=== PATIENT | female | born 1945 | race Caucasian/White ===

== ENCOUNTER 2016-09-30 10:04 | Outpatient (CLI) | payer MEDICARE, OTHER ==
[2016-09-30 12:58] LABS: ALT (SGPT) 16 U/L (0-55); AST (SGOT) 19 U/L (5-34); Alkaline Phosphatase 88 U/L (40-150); Anion Gap 13 mmol/L (10-20); BUN (Urea Nitrogen) 18 mg/dL (9.8-20.1); Bilirubin, Total 0.5 mg/dL (0.2-1.2); CK (CPK) 179 U/L (29-168); Calc. Creatinine Clearance 0 mL/min (70-130); Calcium 9.3 mg/dL (7.8-10.44); Carbon Dioxide 27 mmol/L (23-31); Chloride 104 mmol/L (98-107); Estimated GFR-MDRD 52; Globulin 2.7 g/dL (2.4-3.5); Protein, Total 6.9 g/dL (5.8-8.1)
[2016-09-30 14:24] LABS: White Blood Cell (WBC) Count 8.7 thou/uL (4.8-10.8)
[2016-09-30 14:25] LABS: %Basophils 0.7 % (0.0-1.0); %Eosinophils 7.9 % (0.0-10.0); %Lymphocytes 25.4 % (21.0-51.0); %Monocytes 6.4 % (0.0-10.0); Hematocrit 46.9 % (36.0-47.0); Mean Platelet Volume 7.6 fL (7.4-10.4); Red Blood Cell (RBC) Count 5.03 mill/uL (4.20-5.40)
[2016-09-30 14:26] LABS: #Basophils 0.1 thou/uL (0.0-0.2); #Eosinphils 0.7 thou/uL (0.0-0.7); #Lymphocytes 2.2 thou/uL (1.20-3.40); #Monocytes 0.6 thou/uL (0.11-0.59); #Neutrophils 5.2 thou/uL (1.40-6.50)
== END 2016-09-30 10:05 | disposition home or self-care (01) ==
LOC: NAVSJIPCSP 10:04
PROVIDERS: ATTEND Student in an Organized Health Care Education/Training Program
DX: E53.8 Deficiency of other specified B group vitamins (principal); E55.9 Vitamin D deficiency, unspecified; E53.1 Pyridoxine deficiency; E51.9 Thiamine deficiency, unspecified; R25.1 Tremor, unspecified
CPT/HCPCS: 36415; 80053; 82306; 82550; 82607; 84207; 84425; 85025

== ENCOUNTER 2016-10-16 13:34 | Outpatient (CLI) | payer MEDICARE, OTHER ==
[2016-10-16 13:55] LABS: Bilirubin Negative (Negative); Blood, Urine Negative (Negative); Glucose, Urine (Dipstick) Negative (Negative); Ketone, Urine Negative (Negative); Nitrite Negative (Negative); Protein, Urine (Dipstick) Negative (Neg-Trace); Urobilinogen 0.2 mg/dL (0.2-1.0)
[2016-10-16 15:25] LABS: Squamous Epithelial 0-3 HPF (0-3); WBC/HPF 0-3 HPF (0-3)
== END 2016-10-16 13:35 | disposition home or self-care (01) ==
LOC: NAVSJIPCSP 13:34 → NAV LAB 13:35
PROVIDERS: ATTEND Family Medicine
DX: N39.0 Urinary tract infection, site not specified (principal)
CPT/HCPCS: 81003; 81015; 87086

== ENCOUNTER 2017-01-20 14:42 | Outpatient (CLI) | payer MEDICARE, OTHER ==
[2017-01-20 15:33] LABS: Bilirubin Negative (Negative); Blood, Urine Trace (Negative); Clarity Clear (Clear); Glucose, Urine (Dipstick) 100 mg/dL (Negative); Leukocyte Small (Negative); Nitrite Positive (Negative); Protein, Urine (Dipstick) Negative (Neg-Trace); Urobilinogen 0.2 mg/dL (0.2-1.0); pH, Urine 5.5 (5.0-9.0)
[2017-01-20 15:48] LABS: Bacteria/HPF 4+ HPF (None Seen); RBC/HPF 0-3 HPF (0-3); Squamous Epithelial 0-3 HPF (0-3); WBC/HPF 21-50 HPF (0-3)
== END 2017-01-20 14:43 | disposition home or self-care (01) ==
LOC: NAV LAB 14:42
PROVIDERS: ATTEND Family Medicine
DX: N39.0 Urinary tract infection, site not specified (principal)
CPT/HCPCS: 81003; 81015; 87077; 87086; 87186

== ENCOUNTER 2017-02-11 09:04 | Outpatient (CLI) | payer MEDICARE, OTHER ==
[2017-02-11 12:49] LABS: #Basophils 0.1 thou/uL (0.0-0.2); #Eosinphils 0.3 thou/uL (0.0-0.7); #Lymphocytes 2.9 thou/uL (1.20-3.40); #Monocytes 0.6 thou/uL (0.11-0.59); #Neutrophils 5.6 thou/uL (1.40-6.50); %Basophils 0.9 % (0.0-1.0); %Eosinophils 3.1 % (0.0-10.0); %Lymphocytes 30.5 % (21.0-51.0); %Monocytes 6.2 % (0.0-10.0); %Neutrophils 59.4 % (42.0-75.0); Hemoglobin 13.5 g/dL (12.0-16.0); Mean Corpuscular HGB CONC 32.7 g/dL (32.0-36.0); Mean Corpuscular Hemoglobin 30.8 pg (27.0-31.0); Mean Corpuscular Volume 94.4 fl (81.0-99.0); Mean Platelet Volume 7.1 fL (7.4-10.4); Platelet Count 183 thou/uL (130-400); RBC Distribution Width 12.8 % (11.5-14.5); White Blood Cell (WBC) Count 9.4 thou/uL (4.8-10.8)
[2017-02-11 13:14] LABS: ALT (SGPT) 14 U/L (8-55); AST (SGOT) 19 U/L (5-34); Albumin 4.1 g/dL (3.4-4.8); Alkaline Phosphatase 81 U/L (40-150); Anion Gap 20 mmol/L (10-20); BUN (Urea Nitrogen) 24 mg/dL (9.8-20.1); Bilirubin, Direct 0.1 mg/dL (0.1-0.3); Bilirubin, Total 0.3 mg/dL (0.2-1.2); Calc. Creatinine Clearance 0 mL/min (70-130); Calcium 9.3 mg/dL (7.8-10.44); Carbon Dioxide 20 mmol/L (23-31); Cardiac Risk 3.9 (Less than 4.5); Chloride 105 mmol/L (98-107); Cholesterol 168 mg/dl (< 200 Desired); Estimated GFR-MDRD 52; HDL Cholesterol 43 mg/dL (>60 Neg Risk); LDL Cholesterol, Calculated 97 mg/dL; Potassium 4.6 mmol/L (3.5-5.1); Protein, Total 6.7 g/dL (6.0-8.3); Sodium 140 mmol/L (136-145); Triglycerides 141 mg/dL (Less than 150)
[2017-02-11 14:11] LABS: Hemoglobin A1c 7.3 % (4.0-6.0)
[2017-02-11 14:26] LABS: Glucose 50 mg/dL (83-110)
== END 2017-02-11 09:05 ==
LOC: NAVSJIPCSP 09:04
PROVIDERS: ATTEND Family Medicine
DX: E11.40 Type 2 diabetes mellitus with diabetic neuropathy, unspecified (principal); I10 Essential (primary) hypertension; R25.1 Tremor, unspecified; Z79.899 Other long term (current) drug therapy
CPT/HCPCS: 36415; 80048; 80061; 80076; 83036; 84443; 85025

== ENCOUNTER 2017-06-12 08:39 | Outpatient (CLI) | payer MEDICARE, OTHER ==
[2017-06-12 09:26] LABS: #Basophils 0.1 thou/uL (0.0-0.2); #Eosinphils 0.3 thou/uL (0.0-0.7); #Lymphocytes 2.5 thou/uL (1.20-3.40); #Monocytes 0.6 thou/uL (0.11-0.59); #Neutrophils 3.8 thou/uL (1.40-6.50); %Basophils 1.3 % (0.0-1.0); %Eosinophils 4.6 % (0.0-10.0); %Lymphocytes 34.1 % (21.0-51.0); %Monocytes 7.8 % (0.0-10.0); %Neutrophils 52.2 % (42.0-75.0); Hemoglobin 13.8 g/dL (12.0-16.0); Mean Corpuscular HGB CONC 31.9 g/dL (32.0-36.0); Mean Corpuscular Hemoglobin 30.1 pg (27.0-31.0); Mean Corpuscular Volume 94.3 fl (81.0-99.0); Mean Platelet Volume 8.5 fL (7.4-10.4); Platelet Count 182 thou/uL (130-400); RBC Distribution Width 12.2 % (11.5-14.5); Red Blood Cell (RBC) Count 4.57 mill/uL (4.20-5.40); White Blood Cell (WBC) Count 7.3 thou/uL (4.8-10.8)
[2017-06-12 09:44] LABS: Bilirubin Negative (Negative); Blood, Urine Trace (Negative); Clarity Slightly Cloudy (Clear); Glucose, Urine (Dipstick) Negative (Negative); Leukocyte Small (Negative); Nitrite Positive (Negative); Protein, Urine (Dipstick) Negative (Neg-Trace); Urobilinogen 0.2 mg/dL (0.2-1.0); pH, Urine 6.5 (5.0-9.0)
[2017-06-12 09:47] LABS: ALT (SGPT) 16 U/L (8-55); AST (SGOT) 17 U/L (5-34); Albumin 4.1 g/dL (3.4-4.8); Alkaline Phosphatase 93 U/L (40-150); Anion Gap 14 mmol/L (10-20); BUN (Urea Nitrogen) 29 mg/dL (9.8-20.1); Bilirubin, Direct 0.2 mg/dL (0.1-0.3); Bilirubin, Total 0.5 mg/dL (0.2-1.2); Calc. Creatinine Clearance 0 mL/min (70-130); Calcium 9.9 mg/dL (7.8-10.44); Carbon Dioxide 28 mmol/L (23-31); Cardiac Risk 4.5 (Less than 4.5); Chloride 101 mmol/L (98-107); Cholesterol 195 mg/dl (< 200 Desired); Estimated GFR-MDRD 43; Glucose 117 mg/dL (83-110); HDL Cholesterol 43 mg/dL (>60 Neg Risk); LDL Cholesterol, Calculated 116 mg/dL; Potassium 4.5 mmol/L (3.5-5.1); Protein, Total 7.4 g/dL (6.0-8.3); Sodium 138 mmol/L (136-145); Triglycerides 180 mg/dL (Less than 150)
[2017-06-12 09:48] LABS: Hemoglobin A1c 9.8 % (4.0-6.0)
[2017-06-12 09:53] LABS: Bacteria/HPF 3+ HPF (None Seen); RBC/HPF 0-3 HPF (0-3); Squamous Epithelial 0-3 HPF (0-3)
[2017-06-12 09:54] LABS: Other Microscopic Description NO
== END 2017-06-12 08:40 | disposition home or self-care (01) ==
LOC: NAV LAB 08:39
PROVIDERS: ATTEND Family Medicine
DX: E11.40 Type 2 diabetes mellitus with diabetic neuropathy, unspecified (principal); K21.9 Gastro-esophageal reflux disease without esophagitis; I10 Essential (primary) hypertension; R25.1 Tremor, unspecified; Z79.899 Other long term (current) drug therapy; E11.9 Type 2 diabetes mellitus without complications
CPT/HCPCS: 80048; 80061; 80076; 81001; 83036; 84443; 85025

== ENCOUNTER 2017-08-30 22:36 | Emergency (ER) | payer MEDICARE, OTHER ==
[2017-08-30] MEDS ORDERED: Ondansetron HCl/PF 4 MG/2 ML Vial ONE (22:58)
[2017-08-30] MEDS ORDERED: Fentanyl 100 MCG/2 ML VIAL ONE (22:58)
[2017-08-30] MEDS ORDERED: Famotidine/PF 20 mg/2ml Vial ONE (22:58)
[2017-08-30 23:32] LABS: PTT 34.4 SEC (22.9-36.1); Prothrombin Time 13.5 SEC (12.0-14.7)
[2017-08-30 23:35] LABS: #Basophils 0.1 thou/uL (0.0-0.2); #Eosinphils 0.3 thou/uL (0.0-0.7); #Monocytes 0.8 thou/uL (0.11-0.59); #Neutrophils 4.7 thou/uL (1.40-6.50); %Basophils 1.1 % (0.0-1.0); %Eosinophils 3.8 % (0.0-10.0); %Lymphocytes 25.4 % (21.0-51.0); %Monocytes 9.7 % (0.0-10.0); Hemoglobin 10.5 g/dL (12.0-16.0); Mean Corpuscular HGB CONC 32.4 g/dL (32.0-36.0); Mean Corpuscular Hemoglobin 30.3 pg (27.0-31.0); Mean Corpuscular Volume 93.5 fl (81.0-99.0); Mean Platelet Volume 8.4 fL (7.4-10.4); Platelet Count 185 thou/uL (130-400); Red Blood Cell (RBC) Count 3.47 mill/uL (4.20-5.40); White Blood Cell (WBC) Count 7.8 thou/uL (4.8-10.8)
[2017-08-30 23:37] LABS: Anion Gap 13 mmol/L (10-20); BUN (Urea Nitrogen) 11 mg/dL (9.8-20.1); Calc. Creatinine Clearance 0 mL/min (70-130); Calcium 8.8 mg/dL (7.8-10.44); Carbon Dioxide 25 mmol/L (23-31); Chloride 107 mmol/L (98-107); Estimated GFR-MDRD 66; Glucose 146 mg/dL (83-110); Potassium 3.3 mmol/L (3.5-5.1); Sodium 142 mmol/L (136-145)
[2017-08-30 23:39] LABS: ALT (SGPT) 24 U/L (8-55); AST (SGOT) 38 U/L (5-34); Albumin 3.4 g/dL (3.4-4.8); Alkaline Phosphatase 77 U/L (40-150); Bilirubin, Direct 0.2 mg/dL (0.1-0.3); Bilirubin, Total 0.3 mg/dL (0.2-1.2); Protein, Total 5.9 g/dL (6.0-8.3)
[2017-08-30 23:41] LABS: CKMB 3.8 ng/mL (0-6.6); Troponin I Less than 0.010 ng/mL (< 0.028)
[2017-08-31 00:15] LABS: Bilirubin Negative (Negative); Blood, Urine Trace (Negative); Clarity Clear (Clear); Glucose, Urine (Dipstick) 100 mg/dL (Negative); Leukocyte Small (Negative); Nitrite Negative (Negative); Protein, Urine (Dipstick) 30 mg/dL (Neg-Trace); Urobilinogen 0.2 mg/dL (0.2-1.0)
[2017-08-31 00:25] LABS: RBC/HPF 0-3 HPF (0-3); Squamous Epithelial 0-3 HPF (0-3)
[2017-08-31 00:26] LABS: Bacteria/HPF Rare-Few HPF (None Seen)
[2017-08-31] MEDS ORDERED: Fentanyl 100 MCG/2 ML VIAL ONE (00:41)
== END 2017-08-31 00:50 | disposition home or self-care (01) ==
LOC: NAV ERS 22:36
DX: K21.9 Gastro-esophageal reflux disease without esophagitis (principal); F17.210 Nicotine dependence, cigarettes, uncomplicated; F32.9 Major depressive disorder, single episode, unspecified; M54.9 Dorsalgia, unspecified; G89.29 Other chronic pain; I10 Essential (primary) hypertension; E11.9 Type 2 diabetes mellitus without complications; Z79.899 Other long term (current) drug therapy; Z79.84 Long term (current) use of oral hypoglycemic drugs
CPT/HCPCS: 80048; 80076; 81003; 81015; 82150; 82553; 83605; 83690; 84484; 85025; 85610; 85730; 96374; 96375; 96376; J2405; J3010; S0028

== ENCOUNTER 2018-10-08 14:02 | Outpatient (CLI) | payer MEDICARE, OTHER ==
[2018-10-08 14:06] LABS: Bilirubin Negative (Negative); Blood, Urine Small (Negative); Clarity Cloudy (Clear); Glucose, Urine (Dipstick) >=1000 mg/dL (Negative); Leukocyte Moderate (Negative); Nitrite Positive (Negative); Protein, Urine (Dipstick) Negative (Neg-Trace); Urobilinogen 0.2 mg/dL (0.2-1.0)
[2018-10-08 14:47] LABS: RBC/HPF 0-3 HPF (0-3); WBC/HPF 21-50 HPF (0-3)
[2018-10-08 14:48] LABS: Bacteria/HPF 3+ HPF (None Seen); Squamous Epithelial 0-3 HPF (0-3)
[2018-10-08 14:49] LABS: Urine Culture Reflex Yes Yes
== END 2018-10-08 14:03 | disposition home or self-care (01) ==
LOC: NAV LABSP 14:02
PROVIDERS: ATTEND Family Medicine
DX: N39.41 Urge incontinence (principal)
CPT/HCPCS: 81001; 87077; 87086

== ENCOUNTER 2019-01-12 10:01 | Outpatient (CLI) | payer MEDICARE, OTHER ==
--- NOTE | 2019-01-12 10:50 | RAD ---
Lumbar radiographs with bending lateral projections Images: 5 INDICATION: Low back pain with history of spondylolisthesis COMPARISON: Prior exam dated October 05, 2013 FINDINGS: Disc and facet joints: There is moderate disc degenerative disease at L4-5 and L5-S1. Fracture: None. Alignment: There is grade 1 anterolisthesis of L3 on L4 and L2 on L3 that is accentuated with flexion but does not appreciably reduce with extension. Prevertebral soft tissues: There are scattered vascular calcifications involving the abdominal pelvic vasculature. There are cholecystectomy clips within the right upper quadrant. IMPRESSION: Worsening abnormal translational motion seen at L3-4 and L2-3 with the accentuated grade 1 anterolisthesis of L3 on L4 and L2 on L3 with flexion. There is no appreciable reduction seen with extension. There is moderate spondylosis of the lumbar spine that is largely stable to the prior exam.
== END 2019-01-12 10:02 | disposition home or self-care (01) ==
LOC: NAV RAD 10:01
PROVIDERS: ATTEND Physical Medicine & Rehabilitation
DX: M43.16 Spondylolisthesis, lumbar region (principal)
CPT/HCPCS: 72120

== ENCOUNTER 2019-03-25 16:02 | Emergency (ER) | payer MEDICARE, OTHER ==
[2019-03-25] MEDS ORDERED: Lorazepam 0.5 MG TAB ONE (16:51)
[2019-03-25 17:12] LABS: #Basophils 0.1 thou/uL (0.0-0.2); #Eosinphils 0.4 thou/uL (0.0-0.7); #Lymphocytes 2.1 thou/uL (1.20-3.40); #Monocytes 0.4 thou/uL (0.11-0.59); #Neutrophils 4.2 thou/uL (1.40-6.50); %Basophils 1.1 % (0.0-1.0); %Eosinophils 5.6 % (0.0-10.0); %Lymphocytes 29.2 % (21.0-51.0); %Monocytes 5.9 % (0.0-10.0); %Neutrophils 58.3 % (42.0-75.0); Hemoglobin 13.4 g/dL (12.0-16.0); Mean Corpuscular HGB CONC 31.7 g/dL (32.0-36.0); Mean Corpuscular Hemoglobin 29.8 pg (27.0-31.0); Mean Platelet Volume 7.4 fL (7.4-10.4); Platelet Count 267 thou/uL (130-400); RBC Distribution Width 12.4 % (11.5-14.5); White Blood Cell (WBC) Count 7.2 thou/uL (4.8-10.8)
[2019-03-25 17:21] LABS: ALT (SGPT) 17 U/L (8-55); AST (SGOT) 15 U/L (5-34); Albumin 4.1 g/dL (3.4-4.8); Alkaline Phosphatase 100 U/L (40-150); Anion Gap 17 mmol/L (10-20); BUN (Urea Nitrogen) 22 mg/dL (9.8-20.1); Bilirubin, Total 0.4 mg/dL (0.2-1.2); CK (CPK) 87 U/L (29-168); Calc. Creatinine Clearance 0 mL/min (70-130); Calcium 9.6 mg/dL (7.8-10.44); Carbon Dioxide 25 mmol/L (23-31); Chloride 99 mmol/L (98-107); Estimated GFR-MDRD 35; Globulin 3.4 g/dL (2.4-3.5); Glucose 445 mg/dL (83-110); Potassium 5.3 mmol/L (3.5-5.1); Protein, Total 7.5 g/dL (6.0-8.3); Sodium 136 mmol/L (136-145)
--- NOTE | 2019-03-25 17:25 | RAD ---
PORTABLE CHEST 1 VIEW: Date: 03/25/19 Time: 1650 hours HISTORY: Chest pain. FINDINGS: Heart size normal. Lungs are expanded without lobar consolidation, pneumothoraces, or pleural effusio ns. IMPRESSION: No radiographic evidence of acute cardiopulmonary process. POS: [facility]
== END 2019-03-25 18:09 | disposition home or self-care (01) ==
LOC: NAV ERS 16:02
DX: R42 Dizziness and giddiness (principal); E86.0 Dehydration; T43.295A Adverse effect of other antidepressants, initial encounter; I10 Essential (primary) hypertension; E11.9 Type 2 diabetes mellitus without complications; E78.5 Hyperlipidemia, unspecified; G47.00 Insomnia, unspecified; M79.7 Fibromyalgia; M19.90 Unspecified osteoarthritis, unspecified site; F41.9 Anxiety disorder, unspecified; F32.9 Major depressive disorder, single episode, unspecified; F17.210 Nicotine dependence, cigarettes, uncomplicated; Z79.4 Long term (current) use of insulin; Z79.899 Other long term (current) drug therapy
CPT/HCPCS: 71045; 80053; 82550; 84484; 85025; 93005

== ENCOUNTER 2019-07-02 02:38 | Inpatient (IN) | payer MEDICARE, OTHER ==
[2019-07-02] MEDS ORDERED: Meclizine HCl 25 MG TAB ONE (03:30)
[2019-07-02] MEDS ORDERED: Sodium Chloride 0.9% 1,000 ML ONE (03:30)
[2019-07-02 03:35] LABS: Band 8 % (5-11); Hemoglobin 12.5 g/dL (12.0-16.0); Lymphocytes 3 % (21-51); MDiff Complete? YES; Mean Corpuscular HGB CONC 32.8 g/dL (32.0-36.0); Mean Corpuscular Hemoglobin 30.5 pg (27.0-31.0); Mean Corpuscular Volume 93.1 fL (78.0-98.0); Mean Platelet Volume 8.4 fL (7.4-10.4); Monocytes 3 % (0-10); Neutrophil 86 % (42-75); Platelet Count 174 thou/uL (130-400); Platelet Morphology Comment Appears Adequate; RBC Distribution Width 12.7 % (11.5-14.5); RBC Morphology Normal; Red Blood Cell (RBC) Count 4.11 mill/uL (4.20-5.40); White Blood Cell (WBC) Count 23.1 thou/uL (4.8-10.8)
[2019-07-02 03:38] LABS: ALT (SGPT) 14 U/L (8-55); AST (SGOT) 13 U/L (5-34); Albumin 3.9 g/dL (3.4-4.8); Alkaline Phosphatase 84 U/L (40-110); Anion Gap 15 mmol/L (10-20); BUN (Urea Nitrogen) 24 mg/dL (9.8-20.1); Bilirubin, Total 1.1 mg/dL (0.2-1.2); Calc. Creatinine Clearance 0 mL/min (70-130); Calcium 9.5 mg/dL (7.8-10.44); Carbon Dioxide 23 mmol/L (23-31); Chloride 97 mmol/L (98-107); Estimated GFR-MDRD 31; Globulin 3.3 g/dL (2.4-3.5); Glucose 378 mg/dL (83-110); Potassium 4.3 mmol/L (3.5-5.1); Protein, Total 7.2 g/dL (6.0-8.3); Sodium 131 mmol/L (136-145)
[2019-07-02] MEDS ORDERED: Piperacillin/Tazobactam 3.375 GM VIAL ONE (04:04)
[2019-07-02] MEDS ORDERED: Sodium Chloride 0.9% 100 ML ONE (04:05)
[2019-07-02 04:42] LABS: Bilirubin Negative (Negative); Blood, Urine Trace (Negative); Clarity Hazy (Clear); Glucose, Urine (Dipstick) >=1000 mg/dL (Negative); Leukocyte Small (Negative); Nitrite Positive (Negative); Protein, Urine (Dipstick) 30 mg/dL (Neg-Trace); Urobilinogen 0.2 mg/dL (Less than 2)
[2019-07-02 04:43] LABS: RBC/HPF 0-3 HPF (0-3)
[2019-07-02 04:44] LABS: Bacteria/HPF 3+ HPF (None Seen); Squamous Epithelial 0-3 HPF (0-3)
[2019-07-02 04:51] LABS: Cocaine Metabolite Screen Not Detected (NotDetected); Methamphetamine Not Detected (NotDetected); Phencyclidine (PCP) Not Detected (NotDetected); THC/Cannabinoid Screen Not Detected (NotDetected)
[2019-07-02 04:52] LABS: Amphetamine Not Detected (NotDetected); Barbiturates Screen Not Detected (NotDetected); Benzodiazepine Screen Not Detected (NotDetected); Medtox Control Line Valid? VALID (VALID); Methadone Not Detected (NotDetected); Opiate Screen Detected (NotDetected); Oxycodone Screen Not Detected (NotDetected); Tricyclic Screen Not Detected (NotDetected)
[2019-07-02] MEDS ORDERED: Prevnar 13-Val Conj/PF 0.5 ML SYRINGE IM ONE (06:15)
[2019-07-02] MEDS ORDERED: FLU VACC QS2019-20(6MOS UP)/PF 60 MCG/0.5 ML SYRINGE IM ONE (06:15)
--- NOTE | 2019-07-02 07:43 | CT ---
PRELIMINARY REPORT/[facility]/EMERGENCY AFTER HOURS PROCEDURE PROCEDURE INFORMATION: Exam: CT Head Without Contrast Exam date and time: 07/02/2019 4:37 AM Clinical history: 73 years old, female; Pain; Headache not specified; Patient HX: Dizzy; Headache; Weak TECHNIQUE: Imaging protocol: Computed tomography of the head without contrast. Radiation optimization: All CT scans at this facility use at least one of these dose optimization techniques: automated exposure control; mA and/or kV adjustment per patient size (includes targeted exams where dose is matched to clinical indication); or iterative reconstruction. COMPARISON: No relevant prior studies available. FINDINGS: Brain: Mild generalized volume loss of the brain. No brain edema. No intracranial hemorrhage. Ventricles: Normal. No ventriculomegaly. Bones/joints: Unremarkable. No acute fracture. Sinuses: Dependent mucus in the sphenoid sinuses may significant sinusitis. Mastoid air cells: Visualized mastoid air cells are well aerated. Soft tissues: Unremarkable. IMPRESSION: 1. No acute brain findings. 2. Dependent mucus in the sphenoid sinuses may significant sinusitis. Thank you for allowing us to participate in the care of your patient. Dictated and Authenticated by: Teto Das MD 07/02/2019 4:56 AM Central Time ([place] & [place]) FINAL REPORT CT HEAD NONCONTRAST 07/02/2019 PERFORMED ON AN EMERGENCY BASIS AT 0439 HOURS: HISTORY: Headache. Dizziness. COMPARISON: 08/24/2017. FINDINGS: Agree with the preliminary report by Dr. Das from [facility]. No acute intracranial abnormali ties are demonstrated. Fluid layering within the dependent portion of the sphenoid sinus and mucosal thickening are similar to the previous exam. Code QA. Transcribed Date/Time: 07/02/2019 8:40 AM
--- NOTE | 2019-07-02 07:58 | RAD ---
PORTABLE CHEST: HISTORY: Chest pain. COMPARISON: Radiograph of 03/25/2019. FINDINGS: There are scattered areas of increased interstitial markings which are similar to the prior exam and seen on the prior CT examination of the chest and corresponds to a bronchiectasis and scar. Mild aor tic calcifications. No acute osseous abnormality. IMPRESSION: Chronic findings. No acute intrathoracic abnormality. POS: [facility]
[2019-07-02] MEDS ORDERED: Ondansetron PF 4 MG/2 ML Vial IVP PRN (08:32)
[2019-07-02] MEDS ORDERED: Ondansetron ODT 4 MG TAB PO PRN (08:32)
[2019-07-02] MEDS ORDERED: Acetaminophen 325 MG TAB PO PRN (08:32)
[2019-07-02 09:27] LABS: Lactic Acid 1.4 mmol/L (0.5-2.2)
[2019-07-02 09:31] LABS: Anion Gap 17 mmol/L (10-20); BUN (Urea Nitrogen) 20 mg/dL (9.8-20.1); Calc. Creatinine Clearance 47 mL/min (70-130); Calcium 8.8 mg/dL (7.8-10.44); Carbon Dioxide 22 mmol/L (23-31); Chloride 101 mmol/L (98-107); Estimated GFR-MDRD 40; Glucose 295 mg/dL (83-110); Potassium 4.5 mmol/L (3.5-5.1); Sodium 135 mmol/L (136-145)
[2019-07-02 09:32] LABS: #Basophils 0.1 thou/uL (0.0-0.2); #Lymphocytes 1.1 thou/uL (1.20-3.40); #Monocytes 1.1 thou/uL (0.11-0.59); #Neutrophils 17.6 thou/uL (1.40-6.50); %Basophils 0.3 % (0.0-1.0); %Lymphocytes 5.5 % (21.0-51.0); %Monocytes 5.7 % (0.0-10.0); %Neutrophils 88.5 % (42.0-75.0); Hemoglobin 12.5 g/dL (12.0-16.0); Mean Corpuscular HGB CONC 33.4 g/dL (32.0-36.0); Mean Corpuscular Hemoglobin 31.1 pg (27.0-31.0); Mean Platelet Volume 8.3 fL (7.4-10.4); Platelet Count 166 thou/uL (130-400); RBC Distribution Width 12.8 % (11.5-14.5); Red Blood Cell (RBC) Count 4.02 mill/uL (4.20-5.40); White Blood Cell (WBC) Count 19.9 thou/uL (4.8-10.8)
[2019-07-02] MEDS: Piperacillin/Tazobactam 3.375 GM in Sodium Chloride 0.9% 100 ML IVPB SCH ×3 (10:25→21:33)
[2019-07-02] MEDS ORDERED: Dextrose 50% Abboject 50 ML SYRINGE SLOW IVP PRN (12:39)
[2019-07-02] MEDS ORDERED: Dextrose 5% in Water 1,000 ML IV PRN (12:39)
[2019-07-02] MEDS ORDERED: DICLOFENAC SODIUM TOP PRN (13:13)
[2019-07-02] MEDS: Sodium Chloride 0.9% 1,000 ML IV SCH (13:15)
[2019-07-02] MEDS ORDERED: Diclofenac 1% 100 GM GEL TP PRN (13:29)
[2019-07-02] MEDS ORDERED: Non-Formulary Item 1 EACH (Gabapentin [Gabapentin] 600 MG) PO SCH (17:00)
[2019-07-02] MEDS: Gabapentin 300 MG CAP PO SCH ×2 (17:06→21:30)
[2019-07-02] MEDS ORDERED: INSULIN GLARGINE HUM REC ANLOG 18 UNIT SC SCH (21:00)
[2019-07-02] MEDS: Lisinopril 5 MG TAB PO SCH (21:30)
[2019-07-02] MEDS: Lantus 1000 UNITS/10 ML VIAL SC SCH (21:31)
[2019-07-02] MEDS: HYDROcodone/Acetaminophen 10/325 mg Tablet PO PRN (23:21)
--- NOTE | 2019-07-03 02:22 | HP ---
HISTORY OF PRESENT ILLNESS: Ms. Reid is a pleasant 73-year-old white female, who presented to the emergency room this morning complaining of lightheadedness. She states she awakened about 3 o'clock in the morning and felt terrible, so she came to the emergency room. She states she just does not feel well. Her equilibrium was off. She had to hold on to wall to walk. She was seen and evaluated by Dr. Bonilla. She was found to have a significant urinary tract infection with increased white count to 23,000 and her creatinine did increase over the last 5 days for her to 1.8. Blood cultures were drawn and urine cultures were drawn. The patient was started on vancomycin and Zosyn. She was admitted to the hospital. PAST MEDICAL HISTORY: Significant for; 1. Diabetes type 2 with diabetic nephropathy. 2. Hypertension. 3. Arthritis. 4. Urinary tract infection in the past. 5. GERD without esophagitis. 6. Major depressive disorder. 7. Acute pyelonephritis in the past. 8. Sepsis. 9. Fibromyalgia. 10. Anxiety. 11. Claudication. 12. History of hypovitaminosis. 13. Dyspepsia. 14. Osteopenia. 15. Scoliosis. 16. Gallstones. PAST SURGICAL HISTORY: 1. Cholecystectomy. 2. Hysterectomy with one ovary removed. 3. Endometriosis. 4. Cystoscoped by Dr. Jacques. 5. Herniated disk. 6. Vaginal inclusion cyst. 7. Cataract surgery. 8. Laser surgery. FAMILY HISTORY: Reveals the patient's father at age 82 of pancreatic cancer and diagnosed with diabetes. The patient's mother at age 52 of breast cancer diagnosed with diabetes and cancer. The patient has 1 sister with Parkinson disease and one sister with Alzheimer. The patient has an another sister who has Alzheimer disease and diagnosis along with diabetes and heart disease. The patient has 2 healthy sons. SOCIAL HISTORY: Reveals the patient continues to smoke. She smoked for the last 57 years about a pack a day or little less. She is not interested in stopping at this time, although we have encouraged her again to stop smoking. She has tried cold turkey, Chantix, nicotine patch. She does not drink alcohol. Does not use recreational drugs. Unfortunately, her staff has about a year ago. ALLERGIES: THE PATIENT IS ALLERGIC TO; 1. IBUPROFEN. 2. AVELOX. 3. NAPROXEN. 4. NSAIDS. 5. CIPRO. REVIEW OF SYSTEMS: CONSTITUTIONAL: The patient states she has felt like she had fever and some chills, but no night sweats. She has not lost weight. Her appetite is not good at this time. HEENT: She has no change in vision. She has no change in hearing, although she has had congestion allergies. CARDIOVASCULAR: She complains of no chest pain or palpitations. Denies irregular heartbeat at this time. Occasional shortness of breath with exertion, but no lower extremity edema. PULMONARY: She denies shortness of breath, dyspnea on exertion, cough, or wheezing. GI: She denies nausea, or vomiting, although she states she just has no appetite at this time. Denies any heartburn, or indigestion. Denies diarrhea. Also denies constipation or any change in bowel habits. She denies any frequency or urgency, although she did have a urinary tract infection. She has had previous UTIs and seen her urologist for that. She states she is somewhat achy all over, but denies muscle cramps. She denies any rashes or skin lesions or itching. NEUROLOGIC: She states she feels a little lightheaded. No significant headache. No numbness or paresthesias. No vision changes or hearing changes. She does have depression, anxiety disorder secondary to the loss of her recently. She also has loss of a sister. She does have quite a bit of mood swings, but no suicidal ideation. No alcohol abuse. No hallucinations. PHYSICAL EXAMINATION: GENERAL: This is a well-developed, well-nourished 73-year-old white female, who says she still feels poorly. She has not had much of an appetite, but she has had some IV fluids. HEENT: Reveals normocephalic and nontraumatic cranium. Pupils are equally round and reactive. Extraocular movements are intact. Nose and throat are slightly dry. NECK: Supple without masses, nodes, or bruits. CHEST: Clear to auscultation. No rales, no rhonchi, no wheezes. No cough is noted. HEART: Reveals a regular rate and rhythm without murmurs, gallops, or rubs. ABDOMEN: Slightly obese, soft, nontender without organomegaly. Normal bowel sounds are noted. No rebound or guarding is noted. : Deferred. EXTREMITIES: Reveal no clubbing, cyanosis, or edema. The patient has somewhat of a flat affect. Otherwise, is back to her normal. IMPRESSION: At this time, 1. Dehydration. 2. Urinary tract infection. 3. Possible sepsis. 4. Diabetes type 2. 5. Hypertension. 6. Hyperlipidemia. 7. Anxiety and depressive disorder. 8. Arthritis pains. 9. Gastroesophageal reflux disease. 10. Leaky bladder. 11. Allergic rhinitis. PLAN: 1. The patient is admitted to the hospital. 2. We will await her blood cultures and urine cultures. 3. She has been started on vancomycin, and Zosyn. 4. Continue present medications. 5. Continue home medications. 6. Repeat labs tomorrow. Job ID: [id number]
[2019-07-03] MEDS: Piperacillin/Tazobactam 3.375 GM in Sodium Chloride 0.9% 100 ML IVPB SCH ×4 (03:50→21:39)
[2019-07-03 06:16] LABS: ALT (SGPT) 13 U/L (8-55); AST (SGOT) 14 U/L (5-34); Albumin 3.5 g/dL (3.4-4.8); Alkaline Phosphatase 70 U/L (40-110); Anion Gap 15 mmol/L (10-20); BUN (Urea Nitrogen) 20 mg/dL (9.8-20.1); Bilirubin, Total 0.6 mg/dL (0.2-1.2); Calc. Creatinine Clearance 55 mL/min (70-130); Calcium 8.8 mg/dL (7.8-10.44); Carbon Dioxide 21 mmol/L (23-31); Chloride 104 mmol/L (98-107); Estimated GFR-MDRD 48; Glucose 205 mg/dL (83-110); Potassium 4.1 mmol/L (3.5-5.1); Protein, Total 6.5 g/dL (6.0-8.3); Sodium 136 mmol/L (136-145)
[2019-07-03 06:29] LABS: Band 16 % (5-11); Lymphocytes 14 % (21-51); MDiff Complete? YES; Mean Corpuscular HGB CONC 32.6 g/dL (32.0-36.0); Mean Corpuscular Hemoglobin 30.6 pg (27.0-31.0); Mean Platelet Volume 7.8 fL (7.4-10.4); Monocytes 5 % (0-10); Neutrophil 65 % (42-75); Platelet Count 156 thou/uL (130-400); Platelet Morphology Comment Appears Adequate; RBC Distribution Width 12.4 % (11.5-14.5); RBC Morphology Normal; Red Blood Cell (RBC) Count 3.59 mill/uL (4.20-5.40); White Blood Cell (WBC) Count 12.2 thou/uL (4.8-10.8)
[2019-07-03] MEDS: HYDROcodone/Acetaminophen 10/325 mg Tablet PO PRN ×3 (07:23→20:05)
[2019-07-03] MEDS ORDERED: PIOGLITAZONE HCL 45 MG PO SCH (09:00)
[2019-07-03] MEDS ORDERED: DILTIAZEM HCL 120 MG PO SCH (09:00)
[2019-07-03] MEDS ORDERED: DULOXETINE 60 MG PO SCH (09:00)
[2019-07-03] MEDS: Pioglitazone HCl 15 MG TAB PO SCH (09:13)
[2019-07-03] MEDS: Lantus 1000 UNITS/10 ML VIAL SC SCH ×2 (09:14→20:10)
[2019-07-03] MEDS: Oxybutynin 5 MG TAB PO SCH (09:14)
[2019-07-03] MEDS: DULoxetine 30 MG CAP PO SCH (09:14)
[2019-07-03] MEDS: Lisinopril 5 MG TAB PO SCH ×2 (09:14→20:05)
[2019-07-03] MEDS: Gabapentin 300 MG CAP PO SCH ×4 (09:14→20:06)
[2019-07-03] MEDS: Sodium Chloride 0.9% 1,000 ML IV SCH ×2 (09:15→16:31)
[2019-07-04] MEDS: Piperacillin/Tazobactam 3.375 GM in Sodium Chloride 0.9% 100 ML IVPB SCH ×4 (04:25→21:58)
[2019-07-04] MEDS: Sodium Chloride 0.9% 1,000 ML IV SCH (04:25)
[2019-07-04] MEDS: HYDROcodone/Acetaminophen 10/325 mg Tablet PO PRN ×4 (05:51→22:06)
[2019-07-04] MEDS: Gabapentin 300 MG CAP PO SCH ×4 (09:16→21:59)
[2019-07-04] MEDS: Oxybutynin 5 MG TAB PO SCH (09:17)
[2019-07-04] MEDS: Lisinopril 5 MG TAB PO SCH ×2 (09:17→21:59)
[2019-07-04] MEDS: Pioglitazone HCl 15 MG TAB PO SCH (09:18)
[2019-07-04] MEDS: DULoxetine 30 MG CAP PO SCH (09:19)
[2019-07-04] MEDS: Lantus 1000 UNITS/10 ML VIAL SC SCH ×2 (09:21→21:59)
--- NOTE | 2019-07-04 20:58 | PRG ---
DATE OF SERVICE: 07/04/2019 SUBJECTIVE: The patient feels better today with increased strength, but still having persistent right earache and face pain. OBJECTIVE: HEENT: Right ear is dull with fluid. No real erythema. LUNGS: Clear. CARDIAC: Showed regular rhythm. VITAL SIGNS: Show temperature is 98, pulse 75, respirations 18, O2 sats 94% on room air, and blood pressure is 119/56. LABORATORY DATA: Accu-Cheks improved to 134 to 188. White count improved to 12,200, hematocrit 33, and hemoglobin 11. Microbiology shows the above-mentioned resistant Escherichia coli and presumptive Strep pneumoniae bacteremia. ASSESSMENT: 1. Resistant Escherichia coli urinary tract infection. 2. Presumptive Streptococcus pneumoniae bacteremia and most likely sinusitis. PLAN: Continue meropenem as the patient appears to be responding until cultures return. Discussed the need with the patient to probably stay for full 7 days for resistant Escherichia coli urinary tract infection. Job ID: [id number]
--- NOTE | 2019-07-04 21:08 | PRG ---
DATE OF SERVICE: 07/03/2019 The patient of Renny Simmons MD. SUBJECTIVE: The patient feels well, lying in the bed. States that she is still dizzy and is complaining mainly of severe right earache and headache. She has had no further fever or chills since she has been on the antibiotics of vancomycin and Zosyn. She is having minimal cough, no shortness of breath, chest pain, still feeling very weak, however. OBJECTIVE: VITAL SIGNS: Her blood pressure is 125/62, temperature is 97, pulse 73, respirations 18, O2 sats 93% on room air. LUNGS: Show a few rhonchi. CARDIAC: Shows regular rhythm. ABDOMEN: Soft, nontender. SKIN/EXTREMITIES: Showed no edema. LABORATORY DATA: Urine culture is showing E coli, which is resistant, however, to all oral antibiotics, but sensitive to the meropenem she is on. Blood culture, however, is showing presumptive Strep pneumoniae on the nucleic acid test with sensitivities to follow. CT of the head earlier had shown sphenoid sinusitis and mucosal thickening. ASSESSMENT: 1. Sinusitis with pneumococcal bacteremia. 2. Resistant Escherichia coli urinary tract infection. PLAN: Continue meropenem. Await results of cultures for definitive antibiotic therapy. Job ID: [id number]
[2019-07-05] MEDS: Sodium Chloride 0.9% 1,000 ML IV SCH ×2 (04:23→13:32)
[2019-07-05] MEDS: Piperacillin/Tazobactam 3.375 GM in Sodium Chloride 0.9% 100 ML IVPB SCH ×3 (04:27→16:54)
[2019-07-05 06:17] VITALS: BMI 29.4
[2019-07-05 08:02] VITALS: BP 134/61; TEMP 98.9
[2019-07-05] MEDS: Lisinopril 5 MG TAB PO SCH (09:16)
[2019-07-05] MEDS: DULoxetine 30 MG CAP PO SCH (09:18)
[2019-07-05] MEDS: Pioglitazone HCl 15 MG TAB PO SCH (09:19)
[2019-07-05] MEDS: Gabapentin 300 MG CAP PO SCH ×3 (09:21→17:05)
[2019-07-05] MEDS: Oxybutynin 5 MG TAB PO SCH (09:21)
[2019-07-05] MEDS: Lantus 1000 UNITS/10 ML VIAL SC SCH (09:27)
[2019-07-05] MEDS: HYDROcodone/Acetaminophen 10/325 mg Tablet PO PRN ×2 (09:56→17:20)
[2019-07-05 12:37] LABS: #Basophils 0.1 thou/uL (0.0-0.2); #Eosinphils 0.1 thou/uL (0.0-0.7); #Lymphocytes 1.6 thou/uL (1.20-3.40); #Monocytes 0.7 thou/uL (0.11-0.59); #Neutrophils 6.3 thou/uL (1.40-6.50); %Basophils 0.8 % (0.0-1.0); %Eosinophils 0.7 % (0.0-10.0); %Lymphocytes 18.7 % (21.0-51.0); %Monocytes 8.2 % (0.0-10.0); %Neutrophils 71.6 % (42.0-75.0); Mean Corpuscular HGB CONC 31.7 g/dL (32.0-36.0); Mean Corpuscular Hemoglobin 29.8 pg (27.0-31.0); Mean Platelet Volume 7.6 fL (7.4-10.4); Platelet Count 199 thou/uL (130-400); White Blood Cell (WBC) Count 8.7 thou/uL (4.8-10.8)
[2019-07-05 12:41] LABS: ALT (SGPT) 15 U/L (8-55); AST (SGOT) 17 U/L (5-34); Albumin 3.4 g/dL (3.4-4.8); Alkaline Phosphatase 87 U/L (40-110); Anion Gap 16 mmol/L (10-20); BUN (Urea Nitrogen) 15 mg/dL (9.8-20.1); Bilirubin, Total 0.5 mg/dL (0.2-1.2); Calc. Creatinine Clearance 56 mL/min (70-130); Calcium 9.1 mg/dL (7.8-10.44); Carbon Dioxide 22 mmol/L (23-31); Chloride 104 mmol/L (98-107); Estimated GFR-MDRD 48; Globulin 3.3 g/dL (2.4-3.5); Glucose 165 mg/dL (83-110); Protein, Total 6.7 g/dL (6.0-8.3); Sodium 138 mmol/L (136-145)
--- NOTE | 2019-07-05 13:49 | PRG ---
DATE OF SERVICE: 07/05/2019 SUBJECTIVE: Ms. Reid is a very pleasant 73-year-old white female, who went to the emergency room with lightheadedness. She was found to have a significant urinary tract infection. Her white count was noted to be 23,000 and creatinine went up to 1.8. Blood cultures were drawn and urine cultures were drawn. Her urine culture is growing E coli, which is sensitive to piperacillin or Zosyn, which she is presently on, but also oral nitrofurantoin. In the past, she has had nitrofurantoin for the same bacteria and was not able to tolerate it. Today, she states she feels a little bit better, but still feels kind of puny and not very strong. Most likely if she qualifies, we will transfer her to swing bed with physical therapy and occupational therapy. LABORATORY DATA: Today reveals a white count is finally down to 8700 with hemoglobin 11.0, hematocrit 34.8, and platelet count of 199,000. Chemistry reveals sodium 138, potassium 4.0, chloride 104, carbon dioxide 22 with a BUN of 15 and creatinine of 1.12. Certainly, it is much better than 1.61 when she came in. OBJECTIVE: VITAL SIGNS: Today reveal blood pressure 134/61, pulse 82, respirations 18, O2 saturation 95% on room air, and T-max 98.9. GENERAL: On physical examination, this is a well-developed, well-nourished white female, in no apparent distress at this time. HEENT: Reveals normocephalic and nontraumatic cranium. Pupils are equally round and reactive. Extraocular movements are intact. Nose and throat are slightly dry. NECK: Supple without masses, nodes, or bruits. CHEST: Clear to auscultation without rales, rhonchi, or wheezes. HEART: Reveals a regular rate and rhythm without murmurs, gallops, or rubs. ABDOMEN: Soft, nontender without organomegaly. Normal bowel sounds are noted. No rebound or guarding is noted. : Deferred. EXTREMITIES: Reveal no clubbing, cyanosis, or edema. NEUROLOGIC: The patient is neurologically intact. Cranial nerves 2 through 12 are intact. The patient is oriented to person, place, and time. The patient states she feels somewhat better, but not back to her normal. We will continue her present antibiotics since she is sensitive and most likely move her to swing bed and get physical therapy and occupational therapy to try to make her stronger. ASSESSMENT: 1. Escherichia coli resistant type urinary tract infection, greater than 100,000, sensitive to Zosyn, nitrofurantoin, gentamicin, cefoxitin, and amikacin, resistant to all others. 2. Diabetes type 2 with diabetic nephropathy and diabetic neuropathy. 3. Hypertension. 4. Gastroesophageal reflux disease without esophagitis. 5. Major depressive disorder. 6. Osteopenia. 7. Generalized weakness. PLAN: 1. Continue present antibiotics. 2. Continue to monitor the patient's blood pressure closely. 3. Monitor the patient's diabetes with Accu-Cheks a.c. and at bedtime. 4. Encourage the patient to eat, for which her appetite is still very poor at this time. 5. Stress ulcer prophylaxis. 6. Decubitus precautions. 7. DVT prophylaxis per Primary Service. 8. We will get a consult with Physical Therapy and Occupational Therapy. Job ID: [id number]
[2019-07-05 18:59] LABS: Bacteria/HPF None Seen HPF (None Seen); Bilirubin Negative (Negative); Blood, Urine Negative (Negative); Clarity Clear (Clear); Glucose, Urine (Dipstick) Negative (Negative); Leukocyte Negative (Negative); Nitrite Negative (Negative); Protein, Urine (Dipstick) Negative (Neg-Trace); RBC/HPF None Seen HPF (0-3); Squamous Epithelial None Seen HPF (0-3); WBC/HPF 0-3 HPF (0-3)
--- NOTE | 2019-07-07 06:21 | PQF ---
[facility] Crystal Reports Winform ViewerASPEN PUENTES Kofi ENCINAS MD [id number] CLINICAL DOCUMENTATION CLARIFICATION FORM: POST DISCHARGE Addendum to original discharge summary date: ____ Late entry note date: __ DATE: 07/07/2019 ATTN: Kofi ENCINAS MD Please exercise your independent, professional judgment in responding to the clarification form. Clinical indicators are provided on the bottom of this form for your review Please check appropriate box(s) to clarify if the following diagnosis has been ruled in or ruled out: __SEPSIS (CDI/Coding list diagnosis here) [ ] Ruled in diagnosis [ ] Continue to treat [ ] Resolved [ ] Ruled out diagnosis [ ] Cannot rule out diagnosis [ ] Other diagnosis [ ] Unable to determine In addition, please specify: Present on Admission (POA): [ ] Yes [ ] No [ ] Unable to determine For continuity of documentation, please document condition throughout progress notes and discharge summary. Thank You. CLINICAL INDICATORS - SIGNS / SYMPTOMS / LABS Sepsis - Emergency Room visit pg#10 WBC level 23.1 on 07/02 , 12.2 on 07/03 - Documented in Laboratory results Possible sepsis - Documented in H&P on 07/02 by Kofi ENCINAS MD Temp 100.5 - Documented in Vital & Signs BP 119/58 on 07/04 - Documented in Vital & Signs RISK FACTORS UTI E.coli - Documented in H&P on 07/02 by Kofi ENCINAS MD Presumptive streptococcus pneumoniae bacteremia and most likely sinusitis - Documented in PNs on 07/02 by Jared Cardozo TREATMENTS Started vancomycin and Zosyn - Documented in H&P on 07/02 by Kofi ENCINAS MD Continue present medication [facility] [employer] Reports Winform ViewerRepeat lab tomorrow (This form is maintained as a part of the permanent medical record) 2014 [employer] All Rights Reserved [email or web address] [not provided] [email or web address]
== END 2019-07-05 19:01 | DRG 690 ==
LOC: NAV ERS 02:38 → NAV ACUTE 05:39
PROVIDERS: ADMIT Family Medicine; ATTEND Family Medicine
DX: N39.0 Urinary tract infection, site not specified (principal); R78.81 Bacteremia; E11.40 Type 2 diabetes mellitus with diabetic neuropathy, unspecified; I10 Essential (primary) hypertension; M19.91 Primary osteoarthritis, unspecified site; F32.9 Major depressive disorder, single episode, unspecified; M79.7 Fibromyalgia; F41.9 Anxiety disorder, unspecified; E86.0 Dehydration; E78.5 Hyperlipidemia, unspecified; K21.9 Gastro-esophageal reflux disease without esophagitis; J30.9 Allergic rhinitis, unspecified; B96.20 Unspecified Escherichia coli [E. coli] as the cause of diseases classified elsewhere; E11.21 Type 2 diabetes mellitus with diabetic nephropathy; Z90.49 Acquired absence of other specified parts of digestive tract; Z90.710 Acquired absence of both cervix and uterus; Z98.49 Cataract extraction status, unspecified eye; Z88.8 Allergy status to other drugs, medicaments and biological substances; B95.7 Other staphylococcus as the cause of diseases classified elsewhere
CPT/HCPCS: 36416; 70450; 71045; 80053; 80306; 81001; 81003; 81015; 83605; 83735; 85025; 87040; 87077; 87086; 87149; 87186; 90471; 90686; 93005; 94760; 96361; 96365; G0008; J1815; J2405; J2543; J3490; J7050; J8597

== ENCOUNTER 2019-07-05 19:09 | Inpatient (IN) | payer MEDICARE, OTHER ==
[2019-07-05 20:32] VITALS: BMI 29.4
[2019-07-05] MEDS ORDERED: Diclofenac 1% 100 GM GEL TP PRN (23:32)
[2019-07-05] MEDS ORDERED: Lisinopril 5 MG TAB PO SCH (23:45)
[2019-07-05] MEDS ORDERED: Lantus 1000 UNITS/10 ML VIAL SC SCH (23:45)
[2019-07-05] MEDS ORDERED: Gabapentin 300 MG CAP PO SCH (23:45)
[2019-07-05] MEDS: HYDROcodone/Acetaminophen 10/325 mg Tablet PO PRN (23:52)
[2019-07-05] MEDS: Piperacillin/Tazobactam 3.375 GM in Sodium Chloride 0.9% 100 ML IVPB SCH (23:53)
[2019-07-06] MEDS: Piperacillin/Tazobactam 3.375 GM in Sodium Chloride 0.9% 100 ML IVPB SCH ×4 (05:59→23:17)
[2019-07-06] MEDS: HYDROcodone/Acetaminophen 10/325 mg Tablet PO PRN ×3 (08:13→23:17)
[2019-07-06] MEDS: DULoxetine 30 MG CAP PO SCH (08:15)
[2019-07-06] MEDS: Gabapentin 300 MG CAP PO SCH ×4 (08:15→21:15)
[2019-07-06] MEDS: Oxybutynin 5 MG TAB PO SCH (08:16)
[2019-07-06] MEDS: Lisinopril 5 MG TAB PO SCH ×2 (08:16→21:15)
[2019-07-06] MEDS: Pioglitazone HCl 15 MG TAB PO SCH (08:17)
[2019-07-06] MEDS: Lantus 1000 UNITS/10 ML VIAL SC SCH ×2 (08:17→21:15)
--- NOTE | 2019-07-06 12:44 | HP ---
DATE OF TRANSFER: 07/05/2019. HISTORY OF PRESENT ILLNESS: Ms. Reid is a well-developed, well-nourished, very pleasant, 73-year-old white female, who presented to the emergency room complaining of lightheadedness. It was about 3 in the morning. She was evaluated by Dr. Bonilla and found to have significant urinary tract infection with an increased white count of 23,000. Her creatinine was up to 1.8, and she typically runs low 1.1 or 1.2. Blood cultures were drawn and urine cultures were drawn. She was admitted to the hospital and started on Zosyn. She was in the hospital for 3 days in the acute care, and actually, she is much improved. She did grow out E coli, which was sensitive to Zosyn. The only oral antibiotic was nitrofurantoin, she has had difficulty with that. We had a long discussion yesterday and felt that she needed to remain in the hospital since she is still feeling poorly and not completely back to her normal self yet. She felt weak and just felt somewhat nauseous. She has not been eating very well. It was determined that we would transfer her to a swing bed, where she can get continued physical therapy and continue her IV antibiotics. PAST MEDICAL HISTORY: 1. Diabetes type 2 with diabetic neuropathy. 2. Diabetes 2 with diabetic nephropathy. 3. Hypertension. 4. Urinary tract infection, which has been recurrent. 5. Arthritis. 6. GERD without esophagitis. 7. Major depressive disorder. 8. Past history of acute pyelonephritis. 9. Sepsis in past history. 10. Fibromyalgia. 11. Anxiety. 12. Claudication. 13. History of hypovitaminosis. 14. Dyspepsia. 15. Osteopenia. 16. Scoliosis. 17. Gallstones. PAST SURGERY HISTORY: 1. Cholecystectomy. 2. Hysterectomy with one ovary removed. 3. Endometriosis. 4. Cystoscope by Dr. Jacques. 5. Herniated disks. 6. Vaginal inclusion cyst. 7. Cataract surgery. 8. Laser surgery. FAMILY HISTORY: Reveals the patient's father at age 82 of pancreatic cancer, diagnosed with diabetes. The patient's mother at age 52 of breast cancer, diagnosed with diabetes and cancer. The patient had one sister with Parkinson disease and one sister with Alzheimer disease. The patient has another sister who does have Alzheimer disease and diabetes and heart disease. The patient has two healthy sons. SOCIAL HISTORY: Reveals the patient continues to smoke for last the 57 years about a pack a day. She is not interested in stopping at this time. She in the hospital has not been able to smoke, so that is a good thing. She does not drink any alcohol. She does not use recreational drugs. She unfortunately lost her about a year ago. ALLERGIES: REVEALS THE PATIENT IS ALLERGIC TO IBUPROFEN, AVELOX, NAPROSYN, NSAIDS, AND CIPRO. REVIEW OF SYSTEMS: GENERAL: The patient states she feels a bit better. She still has occasional chills, but no fever, no night sweats. Her appetite is still very poor. HEENT: She denies any vision changes or hearing changes. Denies any sore throat, but she still continues to have some allergy congestion. CARDIOVASCULAR: She complains of no chest pain or palpitations. She just feels tired. RESPIRATORY: She has some shortness of breath with exertion at this time. Denies any cough, cold, or congestion at this time. GASTROINTESTINAL: Denies nausea, vomiting, or GI problems. She has poor appetite. Denies heartburn or indigestion. Denies diarrhea or constipation. GENITOURINARY: Denies any frequency or urgency, although she did have some burning with her previous urinary tract infection. She is followed by a urologist, I believe Dr. Pham. MUSCULOSKELETAL: Denies any muscle cramps. SKIN: Denies any dermatological skin lesions or itching. NEUROLOGIC: She is oriented to person, place, and time. She has no vision or hearing changes. Cranial nerves basically 2 through 12 are intact. She just is somewhat weak. PHYSICAL EXAMINATION: GENERAL: This is a well-developed, well-nourished, 73-year-old white female, who still states she does not feel up to her normal. She has a poor appetite. She is not drinking fluids yet. HEENT: Reveals normocephalic and nontraumatic cranium. Pupils are equal, round, and reactive. Extraocular movements are intact. Nose and throat are still slightly dry. NECK: Supple without masses, nodes, or bruits. CHEST: Clear to auscultation. No rales, rhonchi, wheezes, or cough is heard. HEART: Reveals a regular rate and rhythm without murmurs, gallops, or rubs. ABDOMEN: Soft and nontender without organomegaly. Normal bowel sounds are noted. No rebound or guarding is noted. : Deferred. EXTREMITIES: Reveal no clubbing, cyanosis, or edema. The patient still has a flat affect and still is not interested in eating much. IMPRESSION: 1. Urinary tract infection, presently on Zosyn. 2. Dehydration. 3. Possible sepsis, which is much improved. 4. Diabetes, type 2, stable. 5. Hypertension. 6. Hyperlipidemia. 7. Anxiety and depressive disorder. 8. Arthritic pains. 9. Gastroesophageal reflux. 10. Leaky bladder. 11. Allergic rhinitis. PLAN: 1. The patient will be transferred to swing bed at this time. 2. We will continue her Zosyn for full 7 days. 3. Her urine cultures reveal she is growing E coli which is sensitive to Zosyn. 4. Continue other present home medications. 5. Continue to follow labs tomorrow. 6. The patient's IV came out and she is resistant about getting back in, but I did talk with her and we will get it started. If that does not work, we will send her for a PICC line. Job ID: [id number]
[2019-07-06] MEDS: Sodium Chloride 0.9% 20 ML ONE (13:06)
[2019-07-06] MEDS ORDERED: Sodium Chloride 0.9% 20 ML ONE (16:33)
[2019-07-07] MEDS: Piperacillin/Tazobactam 3.375 GM in Sodium Chloride 0.9% 100 ML IVPB SCH ×4 (05:30→23:28)
[2019-07-07] MEDS: Gabapentin 300 MG CAP PO SCH ×4 (08:39→20:57)
[2019-07-07] MEDS: DULoxetine 30 MG CAP PO SCH (08:43)
[2019-07-07] MEDS: Pioglitazone HCl 15 MG TAB PO SCH (08:44)
[2019-07-07] MEDS: Lantus 1000 UNITS/10 ML VIAL SC SCH ×2 (08:46→20:56)
[2019-07-07] MEDS: Oxybutynin 5 MG TAB PO SCH (08:49)
[2019-07-07] MEDS: Lisinopril 5 MG TAB PO SCH ×2 (08:52→20:58)
[2019-07-07] MEDS: HYDROcodone/Acetaminophen 10/325 mg Tablet PO PRN ×2 (08:55→20:56)
[2019-07-07] MEDS: Sodium Chloride 0.9% 20 ML ONE (12:09)
--- NOTE | 2019-07-07 17:36 | PRG ---
DATE OF SERVICE: 07/07/2019 SUBJECTIVE: Ms. Reid is a 73-year-old white female, presented to the emergency room complaining of lightheadedness. She was evaluated by the ER physician, found to have a white count of 23,000 and urinary tract infection. She grew out E coli sensitive to Zosyn. She will finish her Zosyn after her 10 o'clock dose on Friday. She was hospitalized for three days in acute care, now transferred to Swing bed. She will finish her Zosyn after her last dose is Friday at 10:25. The patient states she is feeling better, and wants to go home. I told her she has to finish her IV antibiotics because she has had resistant urinary tract infections. She is reluctant, but she said she will stay till Friday. OBJECTIVE: GENERAL: This is a well-developed, well-nourished, very pleasant white female, in no apparent distress at this time. HEENT: Reveals normocephalic and nontraumatic cranium. The pupils are equal, round, and reactive. Extraocular movements are intact. Nose and throat are slightly dry, but clear. NECK: Supple without masses, nodes, or bruits. CHEST: Clear to auscultation. No rales, rhonchi, wheezes, or cough is heard. HEART: Reveals a regular rate and rhythm without murmurs, gallops, or rubs. ABDOMEN: Soft, obese, nontender without organomegaly. Normal bowel sounds are noted. No rebound or guarding is noted. : Deferred. EXTREMITIES: Reveal no clubbing, cyanosis, or edema. The patient still states she feels better and she is wanting to go home soon. NEUROLOGIC: Her affect is much more back to appropriate. IMPRESSION: 1. Urinary tract infection which grew out Escherichia coli sensitive to Zosyn. 2. Dehydration, much improved. 3. Possible sepsis, much improved. 4. Diabetes type 2, stable. 5. Hypertension. 6. Hyperlipidemia. 7. Anxiety and depressive disorder. 8. Arthritic pains. 9. Gastroesophageal reflux disease. 10. Leaky bladder with incontinence. 11. Allergic rhinitis. PLAN: 1. The patient is transferred to Swing bed. 2. The patient will continue her Zosyn which finishes at 10:25 in the morning on Friday. 3. The patient will continue other present medications. 4. The patient will have lab work tomorrow. 5. If the patient's IV comes out, she will need to get it started so she can get her last doses. Job ID: [id number]
[2019-07-08] MEDS: Piperacillin/Tazobactam 3.375 GM in Sodium Chloride 0.9% 100 ML IVPB SCH ×4 (05:27→23:36)
[2019-07-08 06:02] LABS: #Basophils 0.1 thou/uL (0.0-0.2); #Eosinphils 0.1 thou/uL (0.0-0.7); #Lymphocytes 2.1 thou/uL (1.20-3.40); #Monocytes 0.5 thou/uL (0.11-0.59); #Neutrophils 4.2 thou/uL (1.40-6.50); %Basophils 1.4 % (0.0-1.0); %Eosinophils 1.4 % (0.0-10.0); %Lymphocytes 29.8 % (21.0-51.0); %Monocytes 6.7 % (0.0-10.0); %Neutrophils 60.7 % (42.0-75.0); Hemoglobin 10.3 g/dL (12.0-16.0); Mean Corpuscular HGB CONC 32.5 g/dL (32.0-36.0); Mean Corpuscular Hemoglobin 31.1 pg (27.0-31.0); Mean Corpuscular Volume 95.7 fL (78.0-98.0); Mean Platelet Volume 7.1 fL (7.4-10.4); Platelet Count 288 thou/uL (130-400); RBC Distribution Width 12.7 % (11.5-14.5); Red Blood Cell (RBC) Count 3.32 mill/uL (4.20-5.40); White Blood Cell (WBC) Count 6.9 thou/uL (4.8-10.8)
[2019-07-08 06:15] LABS: ALT (SGPT) 12 U/L (8-55); AST (SGOT) 12 U/L (5-34); Albumin 3.3 g/dL (3.4-4.8); Alkaline Phosphatase 65 U/L (40-110); Anion Gap 15 mmol/L (10-20); BUN (Urea Nitrogen) 15 mg/dL (9.8-20.1); Bilirubin, Total 0.2 mg/dL (0.2-1.2); Calc. Creatinine Clearance 56 mL/min (70-130); Calcium 9.2 mg/dL (7.8-10.44); Carbon Dioxide 24 mmol/L (23-31); Chloride 108 mmol/L (98-107); Estimated GFR-MDRD 48; Globulin 2.9 g/dL (2.4-3.5); Glucose 109 mg/dL (83-110); Protein, Total 6.2 g/dL (6.0-8.3); Sodium 143 mmol/L (136-145)
[2019-07-08] MEDS: Lantus 1000 UNITS/10 ML VIAL SC SCH ×2 (09:18→20:18)
[2019-07-08] MEDS: Gabapentin 300 MG CAP PO SCH ×4 (09:21→20:18)
[2019-07-08] MEDS: Lisinopril 5 MG TAB PO SCH ×2 (09:21→20:19)
[2019-07-08] MEDS: Oxybutynin 5 MG TAB PO SCH (09:22)
[2019-07-08] MEDS: DULoxetine 30 MG CAP PO SCH (09:22)
[2019-07-08] MEDS: Pioglitazone HCl 15 MG TAB PO SCH (09:23)
[2019-07-08] MEDS: HYDROcodone/Acetaminophen 10/325 mg Tablet PO PRN ×3 (10:06→23:44)
--- NOTE | 2019-07-08 21:07 | PRG ---
DATE OF SERVICE: 07/08/2019 SUBJECTIVE: Ms. Reid is a 73-year-old white female, presented to the emergency room with lightheadedness. She was found by the ER doctor to have a white count of 23,000 and urinary tract infection. She grew out E. coli, sensitive to Zosyn. She will finish the Zosyn tomorrow morning with her last dose. She states she is feeling much better and states she will be ready to go home tomorrow. OBJECTIVE: VITAL SIGNS: Reveal blood pressure 169/59, pulse 76 to 80, respirations 20, O2 saturation 95% on room air, T-max 96.7. GENERAL: This is a well-developed, well-nourished, pleasant, white female, in no apparent distress at this time. HEENT: Reveals normocephalic and nontraumatic cranium. Pupils are equally round and reactive. Extraocular movements are intact. Nose and throat are slightly dry. NECK: Supple without masses, nodes, or bruits. CHEST: Clear to auscultation. No rales, rhonchi, wheezes, or cough is noted. HEART: Reveals a regular rate and rhythm without murmurs, gallops, or rubs. ABDOMEN: Slightly obese, soft, and nontender without organomegaly. Normal bowel sounds are noted in all 4 quadrants. No rebound or guarding is noted. : Deferred. EXTREMITIES: Reveal no clubbing, cyanosis, or edema. The patient states she still feels better and wants to go home tomorrow. NEUROLOGIC: She is back to her normal. IMPRESSION: 1. Urinary tract infection, which grew out Escherichia coli, sensitive to Zosyn. 2. Dehydration, much improved. 3. Possible sepsis, resolved. 4. Diabetes, type 2, stable. 5. Hypertension. 6. Hyperlipidemia. 7. Anxiety and depressive disorder. 8. Arthritic pains. 9. Gastroesophageal reflux disease. 10. Leaky bladder with incontinence. 11. Allergic rhinitis. PLAN: 1. The patient is on Zosyn, will finish her last dose starting tomorrow morning at 10. 2. The patient will be discharged after that. 3. Continue present medications. 4. The patient will continue to have lab work as an outpatient when she sees me next week. 5. The patient will be discharged tomorrow. Job ID: [id number]
[2019-07-08] MEDS ORDERED: Sodium Chloride 0.9% 10 ML ONE (23:10)
[2019-07-09] MEDS ORDERED: Sodium Chloride 0.9% 10 ML ONE (04:58)
[2019-07-09] MEDS: Piperacillin/Tazobactam 3.375 GM in Sodium Chloride 0.9% 100 ML IVPB SCH (05:28)
--- NOTE | 2019-07-09 06:16 | DIS ---
DATE OF ADMISSION: 07/05/2019 DATE OF DISCHARGE: 07/09/2019 HOSPITAL COURSE: Ms. Reid is a 73-year-old white female, who presented to the emergency room with lightheadedness. She was found to have a leukocytosis with a white count of 23,000, and found to have urinary tract infection. She was started on Zosyn and vancomycin, but soon grew out E coli. We stopped her vancomycin. She will have her last dosed this morning starting at 6 o'clock when she finishes, she will be discharged. She states she is feeling much better and feels like she is back to her normal. As a matter of fact, two days ago, she felt back to normal and want to be discharged. OBJECTIVE: VITAL SIGNS: Reveal blood pressure this morning 169/59, pulse 80, respirations 20, O2 saturation 95% on room air, and T-max 96.6. GENERAL: This is a well-developed, well-nourished, very pleasant 73-year-old white female, in no apparent distress this morning. HEENT: Reveals normocephalic and nontraumatic cranium. Pupils are equal, round, and reactive. Extraocular movements are intact. Nose and throat are slightly dry. NECK: Supple without masses, nodes, or bruits. CHEST: Clear to auscultation. No rales, rhonchi, or wheezes are heard. HEART: Reveals a regular rate and rhythm without murmurs, gallops, or rubs. ABDOMEN: Soft, nontender without organomegaly. Normal bowel sounds are noted. No rebound or guarding is noted. : Deferred. EXTREMITIES: Reveal no clubbing, cyanosis, or edema. NEUROLOGIC: She is oriented x4, back to her normal self. She expresses a wish to be discharged this morning. LABORATORY DATA: Has leukocytosis, white count was 6,900. IMPRESSION: 1. Urinary tract infection, specifically E coli sensitive to Zosyn, which she finished the full 7 days this morning's dose. 2. Dehydration, resolved. 3. Sepsis, resolved. 4. Diabetes type 2, improved. 5. Hypertension. 6. Hyperlipidemia. 7. Anxiety and depressive disorder. 8. Arthritis. 9. Gastroesophageal reflux disease. 10. Leaky bladder with incontinence. 11. Allergic rhinitis. PLAN: 1. The patient will finish the last dose this morning. The patient is much improved and back to her normal self. 2. The patient will be discharged. The patient will continue on her home medications which include the following; 1. Voltaren gel topically p.r.n. 2. Diltiazem 100 mg daily. 3. Cymbalta 60 mg daily. 4. Gabapentin 600 mg q.i.d. scheduled. 5. Lantus 18 units subcu b.i.d. 6. Lisinopril 5 mg b.i.d. 7. Ditropan 5 mg daily. 8. Actos 45 mg daily. 9. Hydrocodone, which is [place] 10/325 q.6 hours p.r.n. Plan, the patient is ready for discharge after she gets her last dose. Job ID: [id number]
[2019-07-09] MEDS: Pioglitazone HCl 15 MG TAB PO SCH (08:31)
[2019-07-09] MEDS: Gabapentin 300 MG CAP PO SCH (08:31)
[2019-07-09] MEDS: DULoxetine 30 MG CAP PO SCH (08:32)
[2019-07-09] MEDS: Oxybutynin 5 MG TAB PO SCH (08:32)
[2019-07-09] MEDS: Lisinopril 5 MG TAB PO SCH (08:33)
[2019-07-09] MEDS: Lantus 1000 UNITS/10 ML VIAL SC SCH (08:34)
[2019-07-09] MEDS: HYDROcodone/Acetaminophen 10/325 mg Tablet PO PRN (08:37)
[2019-07-09 09:42] VITALS: BP 143/66; TEMP 98.2
== END 2019-07-09 09:55 | disposition home or self-care (01) | DRG 872 ==
LOC: NAV ACUTE 19:09
PROVIDERS: ADMIT Family Medicine; ATTEND Family Medicine
DX: A41.9 Sepsis, unspecified organism (principal); N39.0 Urinary tract infection, site not specified; K21.9 Gastro-esophageal reflux disease without esophagitis; I10 Essential (primary) hypertension; F32.9 Major depressive disorder, single episode, unspecified; F41.9 Anxiety disorder, unspecified; M79.7 Fibromyalgia; F17.210 Nicotine dependence, cigarettes, uncomplicated; E86.0 Dehydration; E11.21 Type 2 diabetes mellitus with diabetic nephropathy; E11.40 Type 2 diabetes mellitus with diabetic neuropathy, unspecified; E78.5 Hyperlipidemia, unspecified; J30.9 Allergic rhinitis, unspecified; B96.20 Unspecified Escherichia coli [E. coli] as the cause of diseases classified elsewhere; R53.1 Weakness; Z90.49 Acquired absence of other specified parts of digestive tract; Z90.710 Acquired absence of both cervix and uterus; Z88.8 Allergy status to other drugs, medicaments and biological substances
CPT/HCPCS: 36416; 80053; 85025; J1815; J2543; J3490

== ENCOUNTER 2019-08-09 16:11 | Outpatient (CLI) | payer MEDICARE, OTHER ==
--- NOTE | 2019-08-09 16:37 | RAD ---
EXAM: Two views chest PROVIDED CLINICAL HISTORY: Acute upper respiratory infection. COMPARISON: 07/02/2019. FINDINGS: Cardiac silhouette and pulmonary vasculature are within normal limits. Again noted are mild increase in interstitial markings bilaterally likely attributable to mild chronic lung changes. No consolidation or pleural fluid is identified. Degenerative changes are seen in the spine. Vascular ca lcifications are again seen in the thoracic aorta. IMPRESSION: Stable mild chronic lung changes without evidence of an acute cardiopulmonary process..
== END 2019-08-09 16:12 | disposition home or self-care (01) ==
LOC: NAV RAD 16:11
PROVIDERS: ATTEND Family Medicine
DX: J06.9 Acute upper respiratory infection, unspecified (principal); J98.4 Other disorders of lung
CPT/HCPCS: 71046

== ENCOUNTER 2019-08-14 16:07 | Emergency (ER) | payer MEDICARE, OTHER ==
--- NOTE | 2019-08-14 16:44 | RAD ---
RADIOGRAPH CHEST 2 VIEWS: DATE: 08/14/2019 HISTORY: 73-year-old female with cough COMPARISON: 08/13/2019 and 03/25/2019 FINDINGS: There is no airspace density, pulmonary edema, pleural effusion, pneumothorax, or cardiomegaly. There are chronic mild diffuse interstitial changes throughout all lung barone. No interval change overall. IMPRESSION: 1. No acute cardiopulmonary findings. 2. Diffuse mild chronic interstitial pulmonary changes.
== END 2019-08-14 16:58 | disposition home or self-care (01) ==
LOC: NAV ERS 16:07
DX: R05 Cough (principal); F17.210 Nicotine dependence, cigarettes, uncomplicated; E11.9 Type 2 diabetes mellitus without complications; I10 Essential (primary) hypertension
CPT/HCPCS: 71046

== ENCOUNTER 2019-08-17 16:02 | Outpatient (CLI) | payer MEDICARE, OTHER ==
--- NOTE | 2019-08-17 16:54 | CT ---
CT Sinuses WO Con INDICATION: Recurrent sinusitis COMPARISON: None FINDINGS: Maxillary sinuses: Clear Frontal sinus: Clear Sphenoid sinus: Clear Ethmoid sinus: Clear Mastoid air cells: There is a right mastoid effusion. The visualized left mastoids are clear. Nasal Septum: Unremarkable Incidental findings: None of significance. IMPRESSION: Right mastoid effusion No appreciable paranasal sinus disease.
== END 2019-08-17 16:03 | disposition home or self-care (01) ==
LOC: NAV CT 16:02
PROVIDERS: ATTEND Otolaryngology Plastic Surgery within the Head & Neck
DX: J30.9 Allergic rhinitis, unspecified (principal); H74.8X1 Other specified disorders of right middle ear and mastoid